=== PATIENT | male | born 1945 | race Two or more races ===

== ENCOUNTER 2017-11-10 10:02 | Outpatient (CLI) | payer OTHER | END 2017-11-10 14:39 | disposition home or self-care (01) | LOC: SONOGRAMA 10:02 | DX: K76.0 Fatty (change of) liver, not elsewhere classified (principal) ==

== ENCOUNTER 2017-11-10 10:17 | Outpatient (CLI) | payer OTHER | END 2017-11-10 14:39 | disposition home or self-care (01) | LOC: RAD 10:17 | DX: S52.501A Unspecified fracture of the lower end of right radius, initial encounter for closed fracture (principal) ==

== ENCOUNTER 2020-05-16 11:18 | Outpatient (CLI) | payer OTHER | END 2020-05-16 11:30 | disposition home or self-care (01) | LOC: RAD 11:18 → SONOGRAMA 11:18 | PROVIDERS: ATTEND Family Medicine | DX: N64.4 Mastodynia (principal) ==

== ENCOUNTER 2021-08-24 11:41 | Outpatient (CLI) | payer OTHER | END 2021-08-24 12:00 | disposition home or self-care (01) | LOC: MRI 11:41 | PROVIDERS: ATTEND Ophthalmology | DX: H49.12 Fourth [trochlear] nerve palsy, left eye (principal); H50.22 Vertical strabismus, left eye; Z96.1 Presence of intraocular lens; I10 Essential (primary) hypertension; H35.373 Puckering of macula, bilateral | CPT/HCPCS: 70553; A9575 ==

== ENCOUNTER 2022-06-28 13:51 | Outpatient (CLI) | payer OTHER | END 2022-06-28 13:54 | disposition home or self-care (01) | LOC: RAD 13:51 | PROVIDERS: ATTEND Physical Medicine & Rehabilitation | DX: M17.0 Bilateral primary osteoarthritis of knee (principal) ==

== ENCOUNTER 2022-07-12 10:44 | Outpatient (CLI) | payer OTHER | END 2022-07-12 11:00 | disposition home or self-care (01) | LOC: MRI 10:44 | PROVIDERS: ATTEND Physical Medicine & Rehabilitation | DX: M17.12 Unilateral primary osteoarthritis, left knee (principal); S83.242A Other tear of medial meniscus, current injury, left knee, initial encounter | CPT/HCPCS: 73721 ==

== ENCOUNTER 2024-10-08 10:50 | Outpatient (CLI) | payer OTHER | END 2024-10-08 10:59 | disposition home or self-care (01) | LOC: TOM 10:50 | PROVIDERS: ATTEND Family Medicine | DX: R07.81 Pleurodynia (principal); Z87.891 Personal history of nicotine dependence ==